=== PATIENT | male | born 1985 | race Caucasian/White ===

== ENCOUNTER 2022-06-15 16:30 | Outpatient (CLI) | payer OTHER, SELFPAY | END 2022-06-15 16:31 | disposition home or self-care (01) | PROVIDERS: Visit Provider Family Medicine | DX: T14.90XA Injury, unspecified, initial encounter (principal); X58.XXXA Exposure to other specified factors, initial encounter; Y92.9 Unspecified place or not applicable ==

== ENCOUNTER 2024-07-22 11:51 | Emergency (ER) | payer OTHER, SELFPAY ==
[2024-07-22 12:07] VITALS: BP 141/88; PULSE 88; RESP 20; TEMP 37; O2SAT 97
[2024-07-22] MEDS: LIDOCAINE 1%-EPI 1:100,000 4 ML INFILTRATI (12:30)
--- NOTE | 2024-07-22 12:35 | CRLHL7_ITS ---
For Patients: As a result of the Cures Act, medical imaging exams and procedure reports are released immediately into your electronic medical record. You may view this report before your referring provider. If you have questions, please contact your health care provider. Indication: Injuries to the 2nd and 3rd digits Comparison: None available. Technique: AP, lateral, and oblique views right hand were obtained. Findings: There is no displaced fracture or dislocation. Minimal periosteal changes of the distal 2nd metacarpal are appreciated commensurate with sequela of prior trauma. The joint spaces are grossly preserved. There is fusiform soft tissue swelling of the 2nd and 3rd digits. Impression: Mild fusiform soft tissue swelling of the 2nd and 3rd digits without evidence of displaced fracture. Dictated by Mariusz Lange MD @ 07/22/2024 1:36:16 PM (Electronically Signed)
--- NOTE | 2024-07-22 13:34 | ED_ITS ---
HPI - General Adult General Date Seen: 07/22/24 Chief complaint: Extremity Pain/Injury, Upper Stated complaint: right hand injury Time Seen by Provider: 07/22/24 12:21 Source: patient Mode of arrival: ambulatory Limitations: no limitations History of Present Illness HPI narrative: Patient is a 39-year-old male presenting with pain to his right 2nd and 3rd digit. States he was cutting some chains with a cut off grinding blade when something hit his hand. He is unsure if the delayed shattered or what exactly happened but he initially was having pain mostly to his middle finger. He sta geovani he wrapped the fingers up tightly and came to the emergency department. When he took off the dressing his index finger was the 1 that was mostly in pain. No other injuries noted. Denies any pain to the rest of his fingers or hand. Describes it as a sharp and burning sensation. Related Data Previous Rx's ?Medication ?Instructions ?Recorded amoxicillin 875 mg-potassium 1 tab PO BID #19 tabs 12/28/22 clavulanate 125 mg tablet cephalexin 500 mg capsule 500 mg PO QID #20 caps 07/22/24 oxycodone 5 mg tablet 5 mg PO Q6H PRN pain #8 tabs 07/22/24 Allergies Allergy/AdvReac Type Severity Reaction Status Date / Time No Known Drug Allergies Allergy Verified 12/28/22 11:13 Review of Systems Narrative: Pertinent systems reviewed and were negative unless stated in HPI PFSH PFS Social History Smoking Status: Current every day smoker What tobacco products do you use: cigarettes Smoking packs per day: 0.33 Smoking cigarettes per day: 6.6 Do you use any of these nicotine containing products: None Second hand tobacco smoke exposure: No How often do you have a drink containing alcohol: never How often do you have six or more drinks on one occasion: Never AUDIT-C Alcohol total score: 0 Non-prescribed substance use: marijuana (any form) Non-prescribed substance use details: tuesday service: Yes Exam Narrative: Exam Narrative: Const: Well-nourished, Well-developed, in moderate distress Eyes: PERRL, no conjunctival injection, and symmetrical lids HENT: Atraumatic external nose and ears. Moist mucous membranes. MSK: Notable pain to palpation noted to 2nd and 3rd digits on the right hand both on the dorsal and volar aspect. Pain starts from around mid point of the proximal phalanx to the tips of each finger. Couple lacerations noted but not deep enough the needing sutures. Laceration on the 3rd finger is about 1 cm in length but is shallow and starts on the dorsal aspect of the DIP going around to the volar aspect. On the 2nd finger there is a 1 cm laceration on the volar aspect of the D IP Skin: Warm, Dry. No rashes or lesions. Neuro: Normal Muscle tone, No focal neurological deficits. Psych: Awake, Alert, & Oriented x3. Appropriate mood and affect. Const: Vital Signs, click to edit/add: Vital Signs - 24 hr 07/22/24 12:07 07/22/24 14:40 Temperature 98.6 F 97.5 F L Pulse Rate [Pulse Oximeter] 88 82 Respiratory Rate 20 18 Blood Pressure [Le ft Upper Arm] 141/88 H 130/85 Pulse Oximetry 97 100 Oxygen Delivery Me thod Room Air Room Air Course Vital Signs Vital signs: Initial Vital Signs Temperature 98.6 F 07/22/24 12:07 Temperature Source Temporal Artery Scan 07/22/24 12:07 Pulse Rate 88 07/22/24 12:07 Pulse Rhythm Regular 07/22/24 12:07 Respiratory Rate 20 07/22/24 12:07 Blood Pressure 141/88 H 07/22/24 12:07 Blood Pressure Mean 105 07/22/24 12:07 Blood Pressure Position Sitting 07/22/24 12:07 Pulse Oximetry 97 07/22/24 12:07 Oxygen Delivery Method Room Air 07/22/24 12:07 Vital Signs Temperature 98.6 F 07/22/24 12:07 Pulse Rate 88 07/22/24 12:07 Respiratory Rate 20 07/22/24 12:07 Blood Pressure 141/88 H 07/22/24 12:07 Pulse Oximetry 97 07/22/24 12:07 Oxygen Delivery Method Room Air 07/22/24 12:07 Temperature 97.5 F L 07/22/24 14:40 Pulse Rate 82 07/22/24 14:40 Respiratory Rate 18 07/22/24 14:40 Blood Pressure 130/85 07/22/24 14:40 Pulse Oximetry 100 07/22/24 14:40 Oxygen Delivery Method Room Air 07/22/24 14:40 Medical Decision Making MDM Narrative Medical decision making narrative: Patient is a 39-year-old male presenting for pain to his 2nd and 3rd fingers after injuring it cutting some chains. There are some lacerations but there are not amendable to sutures at this time. They are rather superficial. Did clean around the areas though. He is having quite a bit pain way so the at the 2nd digits are did do a digital nerve block. After that he was feeling much better. Still has some pain to the 2nd finger but is not want 8 other nerve block there. Will do an x-ray of the hand. There is some mild fusiform swelling but no signs of fractures. The swelling is likely from the injury. Happened so recently it is very unlikely to be flexor tenosynovitis. Went to go re-evaluate the patient he states he feels very sleepy which is very abnormal for him. Unsure what it is from. Does state that his friends said he seem to stagger after the injury. It is unsure if he hit his head or not. At this point I will do a CT scan for signs of other injuries. The read the CT scan was quite delayed. Did come back showing no acute abnormalities as reviewed by myself the radiologist. Patient is feeling better at this time other than pain to his 3rd finger. I offered another nerve block but he declined at this time. Considering his hands were rather dirty from grease I will place him on antibiotics to help with any potential infection. He is agreeable to this plan. He is still having pain though and I will prescribe him some oxycodone. He is agreeable to this plan Imaging Data Hand x-ray: Attestation: I have reviewed the pertinent imaging results. Radiologist's impression: Mild fusiform soft tissue swelling of the 2nd and 3rd digits without evidence of displaced fracture. Dictated by Mariusz Lange MD @ 07/22/2024 1:36:[address] scan - head: Attestation: I have reviewed the pertinent imaging results. Radiologist's impression: No acute intracranial hemorrhage or mass effect. Please note that all CT scans at this facility use dose modulation, iterative reconstruction, and/or weight-based dosing when appropriate to reduce radiation dose to as low as reasonably achievable. Dictated by Matt Isbell MD @ 07/22/2024 3:51:57 PM Discharge Plan Discharge Clinical Impression: Finger pain Qualifiers: Laterality: right Qualified Code(s): M79.644 - Pain in right finger(s) Patient Disposition: Home, Self-Care Condition: Stable Instructions: Peripheral Nerve Block (DC) Additional Instructions: Take Tylenol and ibuprofen for pain. If that is not working to try the oxycodone. He will not be able to get further prescriptions in this emergency department for this injury. Take the antibiotics as directed. Prescriptions: New cephalexin 500 mg capsule 500 mg PO QID Qty: 20 0RF oxycodone 5 mg tablet 5 mg PO Q6H PRN (Reason: pain) Qty: 8 0RF No Action amoxicillin-pot clavulanate 875-125 mg tablet 1 tab PO BID Qty: 19 0RF Follow Up/Referrals: Provider,Not a Local [Primary Care Provider] - Stand Alone Forms: MyHealth Info Instructions
--- NOTE | 2024-07-22 13:43 | CRLHL7_ITS ---
For Patients: As a result of the Century Cures Act, medical imaging exams and procedure reports are released immediately into your electronic medical record. You may view this report before your referring provider. If you have questions, please contact your health care provider. INDICATION: Confusion. TECHNIQUE: Noncontrast CT images of the brain. COMPARISON: None. FINDINGS: The ventricles and sulci are within normal limits for patient age. No mass effect or midline shift. The marc-white differentiation is maintained. No intracranial hemorrhage or pathologic extra-axial fluid collection. Globes are symmetric. The calvarium is intact. The visualized paranasal sinuses and mastoid air cells are clear. IMPRESSION: No acute intracranial hemorrhage or mass effect. Please note that all CT scans at this facility use dose modulation, iterative reconstruction, and/or weight-based dosing when appropriate to reduce radiation dose to as low as reasonably achievable. Dictated by Matt Isbell MD @ 07/22/2024 3:51:57 PM (Electronically Signed)
[2024-07-22 14:40] VITALS: BP 130/85; PULSE 82; RESP 18; TEMP 36.4; O2SAT 100
== END 2024-07-22 16:17 | disposition home or self-care (01) ==
PROVIDERS: Emergency Provider Student in an Organized Health Care Education/Training Program
DX: M79.644 Pain in right finger(s) (principal)
CPT/HCPCS: 70450; 73130; 99284